=== PATIENT | female | born 1935 | race Caucasian/White ===

== ENCOUNTER 2018-03-02 08:48 | Day surgery (SDC) | payer MEDICARE, BC ==
[~2018-03-02] VITALS: Ht 160 cm; Wt 51.6 kg
[~2018-03-02 08:48] MED LIST: FOSI10; LISI5 PO
== END 2018-03-02 11:10 | disposition home or self-care (01) ==
LOC: ORSCSDS 08:48
PROVIDERS: Ophthalmology
PROC: 08RK3JZ Replacement of Left Lens with Synthetic Substitute, Percutaneous Approach (ICD-10-PCS; principal; 2018-03-02 10:30)
DX: H25.12 Age-related nuclear cataract, left eye (principal); I10 Essential (primary) hypertension
CPT/HCPCS: J2250; J3010; J3301; V2632

== ENCOUNTER 2018-03-23 07:27 | Day surgery (SDC) | payer MEDICARE, BC ==
[~2018-03-23] VITALS: Ht 160 cm; Wt 51.7 kg
--- NOTE | 2018-03-23 10:46 | NUR ---
03/23/18 Sebastian6 Tyrell Montgomery LATE ENTRY NARRATIVE PATIENT VSS, TOLERATING PO FLUIDS WELL, NO COMPLAINTS AT THIS TIME. DISCHARGE INSTRUCTIONS REVIEWED WITH PATIENT AND FRIEND ARACELI, BOTH DENY HAVING ANY QUESTIONS AT THIS MOMENT. NURSE ASSISTED PATIENT TO HER RIDE HOME.
== END 2018-03-23 09:55 | disposition home or self-care (01) ==
LOC: ORSCSDS 07:27
PROVIDERS: Ophthalmology
PROC: 08RJ3JZ Replacement of Right Lens with Synthetic Substitute, Percutaneous Approach (ICD-10-PCS; principal; 2018-03-23 09:30)
DX: H25.11 Age-related nuclear cataract, right eye (principal); I10 Essential (primary) hypertension; E78.5 Hyperlipidemia, unspecified; Z79.899 Other long term (current) drug therapy
CPT/HCPCS: J2250; J3010; J3301; J7120; V2632

== ENCOUNTER → 2020-01-10 | Outpatient (CLI) | payer MEDICARE, BC | END | disposition home or self-care (01) | LOC: LAB SHORT 15:52 → PLD 15:52 | DX: D48.5 Neoplasm of uncertain behavior of skin (principal) | CPT/HCPCS: 88305 ==

== ENCOUNTER → 2020-02-05 | Outpatient (CLI) | payer MEDICARE, BC | END | disposition home or self-care (01) | LOC: LAB SHORT 08:08 → PLD 08:08 | DX: C44.329 Squamous cell carcinoma of skin of other parts of face (principal) | CPT/HCPCS: 88305 ==